=== PATIENT | female | born 1990 | race African-American/Black ===

== ENCOUNTER 2016-12-02 16:35 | Emergency (ER) | payer OTHER ==
[~2016-12-02] VITALS: Ht 175.3 cm; Wt 79.4 kg
[2016-12-02 16:36] VITALS: BP 124/81
[2016-12-02] MEDS ORDERED: PYRI200T5 PO (17:10)
[2016-12-02] MEDS ORDERED: BACT800T5 PO (17:10)
== END 2016-12-02 17:18 | disposition home or self-care (01) ==
LOC: M ED 17:14
DX: N39.0 Urinary tract infection, site not specified (principal)

== ENCOUNTER 2016-12-04 15:17 | Emergency (ER) | payer OTHER ==
[~2016-12-04] VITALS: Ht 175.3 cm; Wt 79.4 kg
[~2016-12-04 15:17] MED LIST: BACT800T5 PO; PYRI200T5 PO
[2016-12-04] MEDS ORDERED: KEFL500C7 PO (16:06)
[2016-12-04] MEDS ORDERED: CEPHALEXIN 500 MG CAP PO ONE (16:15)
[2016-12-04 16:17] VITALS: BP 117/69
== END 2016-12-04 16:22 | disposition home or self-care (01) ==
LOC: M ED 15:46
DX: N39.0 Urinary tract infection, site not specified (principal)

== ENCOUNTER → 2016-12-12 | Outpatient (REF) | payer OTHER ==
[~2016-12-12] MED LIST changes: +KEFL500C7 PO
== END ==
LOC: M SFHCLERA 16:10
PROVIDERS: ATTEND Nurse Practitioner Family
DX: R30.0 Dysuria (principal)

== ENCOUNTER 2017-01-25 08:30 | Emergency (ER) | payer OTHER ==
[~2017-01-25] VITALS: Ht 177.8 cm; Wt 79.5 kg
--- NOTE | 2017-01-25 10:23 | REP ---
CT Head without contrast HISTORY: Trauma COMPARISON: None There is no intraparenchymal hemorrhage, acute infarct, mass or midline shift. The ventricular system is normal in appearance. There is no extra cerebral collection. There is no fracture. The visualized sinuses are clear. IMPRESSION: There is no intracranial lesion. Signed by Chase Madrid MD 01/25/2017 10:15 A
--- NOTE | 2017-01-25 10:26 | REP ---
CT cervical spine without contrast HISTORY: Trauma COMPARISON: None There is no acute fracture or subluxation. There is no disc bulge or herniation. The spinal canal and neural foramina are patent. The intervertebral discs and vertebral bodies are normal in height. IMPRESSION: There is no acute fracture or subluxation. Signed by Chase Madrid MD 01/25/2017 10:18 A
[2017-01-25 10:48] VITALS: BP 131/86
[2017-01-25] MEDS ORDERED: IBUP600T26 PO (10:51)
[2017-01-25] MEDS ORDERED: CYCL10TA PO (10:51)
== END 2017-01-25 11:00 | disposition home or self-care (01) ==
LOC: M ED 09:43
DX: S06.0X0A Concussion without loss of consciousness, initial encounter (principal); S13.4XXA Sprain of ligaments of cervical spine, initial encounter; W19.XXXA Unspecified fall, initial encounter; Y92.139 Unspecified place military base as the place of occurrence of the external cause; Y93.89 Activity, other specified; Y99.1 Military activity; F17.210 Nicotine dependence, cigarettes, uncomplicated

== ENCOUNTER 2018-10-23 11:08 | Emergency (ER) | payer OTHER ==
[~2018-10-23] VITALS: Ht 175.3 cm; Wt 72.7 kg
[~2018-10-23 11:08] MED LIST changes: +CYCL10TA PO; +IBUP-1022 PO; +KEFL500C17 PO; -KEFL500C7 PO; +PYRI1TAB5 PO; -PYRI200T5 PO
[2018-10-23 12:52] LABS: URINE PREG TEST NEGATIVE (NEGATIVE)
[2018-10-23] MEDS ORDERED: ONDANSETRON 4MG/2ML VIAL (J2405) IV ONE (13:00)
[2018-10-23] MEDS ORDERED: KETOROLAC 30 MG/ML VIAL (J1885) IV ONE (13:00)
[2018-10-23 13:03] LABS: BASO % 0.2 % (0.0-1.0); EOS % 0.5 % (0.0-3.0); HEMOGLOBIN 12.8 g/dl (12.0-15.5); LYMPH # 0.4 10^3/uL (1.5-6.5); LYMPH % 6.5 % (24.0-44.0); MEAN CORPUSCULAR HEMOGLOBIN 30.3 pg (27.0-33.0); MEAN CORPUSCULAR HGB CONC 32.8 g/dl (32.0-36.5); MEAN CORPUSCULAR VOLUME 92.4 fl (80.0-96.0); MONO # 0.3 10^3/uL (0.0-0.8); MONO % 4.3 % (0.0-5.0); NEUTROPHILS # 5.6 10^3/uL (1.8-7.7); NEUTROPHILS % 88.2 % (36.0-66.0); PLATELET COUNT, AUTOMATED 230 10^3/uL (150-450); RED BLOOD COUNT 4.22 10^6/uL (4.00-5.40); WHITE BLOOD COUNT 6.3 10^3/uL (4.0-10.0)
[2018-10-23 13:36] LABS: ALBUMIN 3.8 GM/DL (3.2-5.2); ALT/SGPT 13 U/L (12-78); BILIRUBIN,DIRECT 0.2 MG/DL (0.0-0.2); BILIRUBIN,TOTAL 0.7 MG/DL (0.2-1.0); BLOOD UREA NITROGEN 16 MG/DL (7-18); CALCIUM LEVEL 8.7 MG/DL (8.5-10.1); CARBON DIOXIDE LEVEL 25 MEQ/L (21-32); CHLORIDE LEVEL 108 MEQ/L (98-107); CREATININE FOR GFR 0.76 MG/DL (0.55-1.30); GLOMERULAR FILTRATION RATE > 60.0 (>60); GLUCOSE, FASTING 93 MG/DL (70-100); LIPASE 125 U/L (73-393); POTASSIUM SERUM 4.4 MEQ/L (3.5-5.1); SODIUM LEVEL 139 MEQ/L (136-145); TOTAL PROTEIN 7.1 GM/DL (6.4-8.2)
[2018-10-23 13:47] LABS: HCG, SERUM QUALITATIVE NEGATIVE (NEGATIVE)
[2018-10-23] MEDS ORDERED: ISOVUE-370 76% 100ML VIAL (Q9967) As Ordered ONE (13:51)
[2018-10-23] MEDS ORDERED: GI COCKTAIL 50ML BTL(HYOSCYAMINE/MAALOX/LIDOCAINE VISCOUS)(1:3:1) PO ONE (14:30)
--- NOTE | 2018-10-23 14:40 | REP ---
CT of the abdomen and pelvis with IV contrast, without bowel contrast for abdominal pain. There are no comparisons. The visualized lung reinoso are unremarkable. The hepatic parenchyma, gallbladder, pancreas, spleen, adrenals and abdominal aorta are unremarkable. There are a few mildly dilated small bowel loops containing air fluid levels in a nonspecific pattern at this time. This could represent ileus or ensuing obstruction. There is no colonic distension. There is no pneumoperitoneum or ascites. Pelvis: The terminal ileum is unremarkable. The appendix is not identified, however there is no pericecal inflammation or abscess. There is no ascites. The uterus is anteverted and eighth flexed and tilted to the left. There is a 1.9 cm left adnexal dominant follicle. The right adnexa is unremarkable. Impression: Nonspecific bowel gas pattern with mildly dilated small bowel loops containing air fluid levels, ileus versus ensuing obstruction. Abdominal 1.9 cm left adnexal follicle. No pneumoperitoneum or ascites. Otherwise, essentially negative CT of the abdomen and pelvis. Electronically Signed by Mango Velez MD 10/23/2018 02:33 P
[2018-10-23] MEDS ORDERED: ZOFR4TAB16 PO (14:50)
[2018-10-23 15:01] VITALS: BP 106/58
--- NOTE | 2018-10-24 15:36 | ED PDOC ---
Post-Departure Follow-Up ft tiffany brooks faxed formal report of ct abd/p for fu David Luis MD Oct 24, 2018 15:36
== END 2018-10-23 15:08 | disposition home or self-care (01) ==
LOC: M ED 11:08
DX: K52.9 Noninfective gastroenteritis and colitis, unspecified (principal)
CPT/HCPCS: 74177; 80048; 80076; 81001; 83690; 84703; 85025; 96374; 96375; 99284; J1885; J2405; Q9967